=== PATIENT | male | born 2000 | race Hispanic/Latino ===

== ENCOUNTER 2020-11-18 00:17 | Emergency (ER) | payer SELFPAY ==
[2020-11-18] MEDS ORDERED: Ibuprofen 800 MG TAB ONE (00:33)
[2020-11-18] MEDS ORDERED: Acetaminophen 500 MG TAB ONE (00:33)
== END 2020-11-18 00:41 | disposition home or self-care (01) ==
LOC: MADERS 00:17
DX: T22.111A Burn of first degree of right forearm, initial encounter (principal); X11.8XXA Contact with other hot tap-water, initial encounter
CPT/HCPCS: 99282